=== PATIENT | female | born 1960 | race Caucasian/White ===

== ENCOUNTER → 2016-06-11 | Outpatient (CLI) | payer MEDICAID | LOC: LAB 13:02 | DX: R19.7 Diarrhea, unspecified (principal) | CPT/HCPCS: 87324; 87449 ==

== ENCOUNTER 2016-06-30 18:36 | Emergency (ER) | payer MEDICAID ==
[~2016-06-30] VITALS: Ht 160 cm; Wt 66.0 kg
[~2016-06-30 18:36] MED LIST: BUDE3CAP14 PO; CMBV14CC INH; DIPH25CA79 PO; IBP200T PO; MNTL10T PO; NF-ESOM40C PO; RANI150T15 PO; SODI1PAC NS
--- OUTSIDE RECORDS SUMMARY | 2016-06-30 18:40 | XMS REPORT | Summary of Care ---
Author Author Garth Andrews M.D. Unknown Address Unknown Phone Unavailable Care Team Providers Care Health Advocate Name Role Phone Consuelo Andrews M.D. 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 Refills: 0 Start 05-Nov-2015 Active Proctozone-HC 2.5 % Rectal Cream INSERT 1 APPLICATORFUL RECTALLY TWICE DAILY FOR 7 DAYS, THEN NEEDED. Refills: 0 Start 05-Nov-2015 Active DiphenhydrAMINE HCl - 25 MG Oral Capsule TAKE 3 CAPSULE Bedtime Refills: 0 Start 05-Nov-2015 Active Voltaren 1 % Transdermal Gel 2-4 gm top q6hr Refills: 0 Start 05-Nov-2015 Active Combivent Respimat 20-100 MCG/ACT Inhalation Aerosol Solution INHALE 1 PUFF 4 TIMES DAILY (MAXIMUM OF 6 PUFFS IN 24 HOURS) Refills: 0 Start 05-Nov-2015 Active Cutivate 0.05 % External Cream APPLY AND GENTLY MASSAGE INTO AFFECTED AREA(S) TWICE DAILY. Refills: 0 Start 05-Nov-2015 Active GuaiFENesin ER 1200 MG Oral Tablet Extended Release 12 Hour TAKE 1 TABLET EVERY 12 HOURS NEEDED. Refills: 0 Start 05-Nov-2015 Active Melatonin Powder Refills: 0 Start 05-Nov-2015 Active Multivitamins Oral Capsule Refills: 0 Start 05-Nov-2015 Active Probiotic Oral Capsule Refills: 0 Start 05-Nov-2015 Active Calcium 600+D 600-800 MG-UNIT Oral Tablet Refills: 0 Start 05-Nov-2015 Active Fish Oil 1000 MG Oral Capsule Refills: 0 Start 05-Nov-2015 Active Allergies and Adverse Reactions Name Dates Details predniSONE (Allergy) Status: Active Procedures Procedure Dates Details History of Ankle Surgery History Of Prior Surgery History of Tonsillectomy History of Tubal Ligation Procedures not documented Immunization Name Dates Details Immunizations not documented Family History Name Dates Details No pertinent family history Comments: Family History Status: Active Social History Name Dates Details - Status: Name Dates Details Smoker. current status unknown Vital Signs Date Test Result Details No Known Vitals to report Results Date Description Value Details 05-Nov-2015 16:13 RHEUMATOID FACTOR, RA, Serum 2014 RHEUMATOID FACTOR Negative Range: Negative 08-Nov-2015 11:20 ANALYZER PROFILE 3031 ANTINUCLEAR ANTIBODIES 37 AU/mL Range: 0-120 Comments: REFERENCE VALUE INTERPRETATION 0-99 U/mL - NEGATIVE 100 - 120 U/mL - EQUIVOCAL >120 U/mL - POSITIVE--- -- SJOGREN'S SSA AB 16 AU/mL Range: 0-120 SJOGREN'S SSB AB 6 AU/mL Range: 0-120 LEDESMA AB 29 AU/mL Range: 0-120 PROMOTION SPECIALIST AB 14 AU/mL Range: 0-120 ANTI DNA 21 IU/mL Range: 0-120 CENTROMERE AB 8 AU/mL Range: 0-120 HISTONE AB 7 AU/mL Range: 0-120 Plan of Care Name Dates Details Planned Observations Planned Goals not documented Interventions Provided Labs/Procedures/ImagingANALYZER PROFILE 3031; Done: Nov 05 2015 1:54PM Instructions Name Dates Details Instructions not documented Encounters Appointment; Garth Andrews M.D. Encounter Diagnosis: Problem not documented On 05-Nov-2015 13:30
[2016-06-30] MEDS ORDERED: METR500T17 PO (18:59)
[2016-06-30 19:28] LABS: BASOPHILS % (AUTO) 0 % (0-2); EOSINOPHILS # (AUTO) 0.1 10^3uL; EOSINOPHILS % (AUTO) 3 % (0-4); LYMPHOCYTES # (AUTO) 1.9 X10^3; MEAN CORPUSCULAR HEMOGLOBIN 29.2 PG (26.0-34.0); MEAN CORPUSCULAR HGB CONC 34.1 g/dL (31.0-37.0); MEAN CORPUSCULAR VOLUME 86 FL (80-100); MEAN PLATELET VOLUME 10.3 FL (6.0-9.5); MONOCYTES # (AUTO) 0.6 X10^3; MONOCYTES % (AUTO) 12 % (3-11); NEUTROPHILS # (AUTO) 2.3 X10^3; NEUTROPHILS % (AUTO) 46 % (51-67); PLATELET COUNT 232 10^3uL (150-450); WHITE BLOOD COUNT 5.02 10^3uL (4.0-11.0)
[2016-06-30 19:38] LABS: ALBUMIN 4.3 g/dL (3.4-5.0); ANION GAP 17.2 MEQ/L (3-15); CALCULATED IONIZED CALCIUM 4.2 mg/dL (3.8-4.6); TOTAL PROTEIN 7.2 g/dL (6.4-8.5)
--- NOTE | 2016-06-30 20:28 | Diagnostic Imaging Report ---
INDICATION: Abdominal pain KUB 7:43 PM There is large amount of stool in the colon. Bowel gas pattern is normal. There are no pathologic masses or calcifications. IMPRESSION: Constipation Dictated by: Dictated on workstation # [id number]
[2016-06-30 21:06] VITALS: BP 111/70
== END 2016-06-30 21:05 | disposition home or self-care (01) ==
LOC: ED 18:37
DX: K59.00 Constipation, unspecified (principal); R14.0 Abdominal distension (gaseous)
CPT/HCPCS: 36415; 74022; 80053; 85025; 99283

== ENCOUNTER → 2016-07-16 | Outpatient (CLI) | payer MEDICAID ==
[~2016-07-16] MED LIST changes: +METR500T17 PO
[2016-07-16 08:25] LABS: WHITE BLOOD COUNT 3.86 10^3uL (4.0-11.0)
[2016-07-16 08:26] LABS: BASOPHILS % (AUTO) 0 % (0-2); EOSINOPHILS # (AUTO) 0.1 10^3uL; EOSINOPHILS % (AUTO) 2 % (0-4); LYMPHOCYTES # (AUTO) 1.2 X10^3; MEAN CORPUSCULAR HEMOGLOBIN 29.3 PG (26.0-34.0); MEAN CORPUSCULAR HGB CONC 34.4 g/dL (31.0-37.0); MEAN CORPUSCULAR VOLUME 85 FL (80-100); MONOCYTES # (AUTO) 0.5 X10^3; MONOCYTES % (AUTO) 13 % (3-11); NEUTROPHILS # (AUTO) 2.1 X10^3; NEUTROPHILS % (AUTO) 53 % (51-67); PLATELET COUNT 238 10^3uL (150-450)
[2016-07-16 08:35] LABS: BILIRUBIN,URINE Negative (Negative); CLARITY,URINE Clear; COLOR,URINE Yellow; GLUCOSE, URINE (UA) Negative (Negative); LEUKOCYTE ESTERASE ,URINE Negative (Negative); PH,URINE 8.5 (5.0 - 8.0); UROBILINOGEN,URINE 0.2 mg/dL (0.2-1.0)
[2016-07-16 08:43] LABS: ALBUMIN 4.4 g/dL (3.4-5.0); ANION GAP 14.3 MEQ/L (3-15); TOTAL PROTEIN 7.3 g/dL (6.4-8.5)
[2016-07-16 08:53] LABS: RBC,URINE None Seen /HPF; URINE CENTRIFUGED VOLUME 12 mL
== END ==
LOC: LAB 08:11
PROVIDERS: ATTEND Physician Assistant Surgical
DX: J43.2 Centrilobular emphysema (principal); K52.89 Other specified noninfective gastroenteritis and colitis; F51.01 Primary insomnia; Z13.6 Encounter for screening for cardiovascular disorders
CPT/HCPCS: 36415; 80053; 80061; 81003; 81015; 84443; 85025

== ENCOUNTER → 2016-07-21 | Outpatient (CLI) | payer MEDICAID ==
--- NOTE | 2016-07-21 08:50 | Diagnostic Imaging Report ---
PROCEDURE: CT abdomen and pelvis with and without contrast. TECHNIQUE: Precontrast acquisitions were acquired through the abdomen and pelvis. Multiple contiguous axial images were obtained through the abdomen and pelvis after the administration of intravenous contrast. INDICATION: Diarrhea. Lymphocytic colitis. COMPARISON: None FINDINGS: The lung bases are clear. There is diffuse hepatic steatosis. No focal hepatic mass is seen. The gallbladder appears unremarkable. The portal vein appears patent. The pancreas, spleen and adrenal glands appear unremarkable. There is a punctate nonobstructive calculus in the mid left kidney. The kidneys are otherwise unremarkable. The uterus and adnexa appear unremarkable. There is a large amount of stool in the colon. There is no bowel wall thickening or distention. No evidence of obstruction. No evidence of appendicitis. No adenopathy or ascites is seen. The abdominal aorta appears normal in caliber. There is a retroaortic left renal vein. No acute osseous abnormality is seen. IMPRESSION: 1. There is large amount of stool in the colon. There is no evidence of acute inflammatory process or bowel obstruction. 2. Diffuse hepatic steatosis. 3. Nonobstructive left renal calculus. Dictated by: Dictated on workstation # [id number]
== END ==
LOC: RAD 07:13
DX: R11.0 Nausea (principal); K52.832 Lymphocytic colitis; R19.7 Diarrhea, unspecified; K76.0 Fatty (change of) liver, not elsewhere classified; N20.0 Calculus of kidney
CPT/HCPCS: 74178; Q9967

== ENCOUNTER → 2016-08-05 | Outpatient (CLI) | payer MEDICAID ==
--- NOTE | 2016-08-05 12:58 | Diagnostic Imaging Report ---
INDICATION: Right knee pain 3 views of the right knee show no fracture, dislocation or other acute abnormalities. IMPRESSION: Negative right knee. Dictated by: Dictated on workstation # [id number]
== END ==
LOC: RAD 12:21
PROVIDERS: ATTEND Family Medicine
DX: M25.561 Pain in right knee (principal)
CPT/HCPCS: 73562

== ENCOUNTER → 2016-08-13 | Outpatient (REF) | payer MEDICAID ==
[~2016-08-13] MED LIST changes: +DEXT1DRO4 OU; +DIPH25CA45 PO; +LINA72CA PO; +MESA1.2T PO; +RANI300T4 PO
== END ==
LOC: LAB 11:12
PROVIDERS: ATTEND Nurse Practitioner Family
DX: R14.0 Abdominal distension (gaseous) (principal)

== ENCOUNTER 2016-08-16 13:18 | Emergency (ER) | payer MEDICAID ==
[~2016-08-16] VITALS: Ht 160 cm; Wt 63.1 kg
[~2016-08-16 13:18] MED LIST changes: -DEXT1DRO4 OU; -DIPH25CA45 PO; -LINA72CA PO; -MESA1.2T PO; -RANI300T4 PO
[2016-08-16] MEDS ORDERED: DEXT1DRO4 OU (14:15)
[2016-08-16] MEDS ORDERED: MESA1.2T PO (14:15)
[2016-08-16] MEDS ORDERED: RANI300T4 PO (14:15)
[2016-08-16] MEDS ORDERED: DIPH25CA45 PO (14:15)
[2016-08-16] MEDS ORDERED: LINA72CA PO (15:06)
--- NOTE | 2016-08-16 15:34 | Diagnostic Imaging Report ---
INDICATION: Abdominal pain, constipation.. TECHNIQUE: Supine and upright view of the abdomen 3:02 PM CORRELATION STUDY: 06/30/2016 FINDINGS: Severity of the constipation has improved. There is gas at the level of rectum without findings suggest obstruction. There is mildly prominent gas filled loops of small bowel but without findings to suggest obstruction. No air-fluid levels. No suggestion for free air. IMPRESSION: 1. Decrease in severity of constipation from prior study. A few gas filled loops of small bowel may reflect mild ileus pattern. Dictated by: Dictated on workstation # [id number]
[2016-08-16 16:03] VITALS: BP 107/71
== END 2016-08-16 16:04 | disposition home or self-care (01) ==
LOC: ED 13:19
DX: K52.9 Noninfective gastroenteritis and colitis, unspecified (principal); K59.00 Constipation, unspecified
CPT/HCPCS: 74020; 99282